=== PATIENT | female | born 1955 | race African-American/Black ===

== ENCOUNTER 2017-07-09 23:17 | Emergency (ER) | payer OTHER | END 2017-07-10 02:25 | LOC: ER 23:17 | DX: K94.23 Gastrostomy malfunction (principal); Y84.9 Medical procedure, unspecified as the cause of abnormal reaction of the patient, or of later complication, without mention of misadventure at the time of the procedure; Y92.89 Other specified places as the place of occurrence of the external cause ==

== ENCOUNTER 2019-10-12 18:08 | Emergency (ER) | payer OTHER ==
[~2019-10-12] VITALS: Ht 172.7 cm; Wt 90.7 kg
[~2019-10-12 18:08] MED LIST: GLUCAGEN1 M2; IPRAT-ALBUT 0.5-3 ML INH; KEFLEX500 MG PO; LIPITOR 20 MG T20 M1 PER TUBE; LISINOPRIL20 MG PER TUBE; LOPRESSOR25 PO; MIRALAX17 GM PO; NORVASC2.5 MG PER TUBE; PROBIOTIC PEAR1 EACH PER TUBE
[2019-10-12 21:23] VITALS: BP 175/94
== END 2019-10-12 21:00 | disposition home or self-care (01) ==
LOC: ER 18:08
DX: R09.89 Other specified symptoms and signs involving the circulatory and respiratory systems (principal); I10 Essential (primary) hypertension; E11.9 Type 2 diabetes mellitus without complications; E78.5 Hyperlipidemia, unspecified; E66.9 Obesity, unspecified; J45.909 Unspecified asthma, uncomplicated; Z68.30 Body mass index [BMI] 30.0-30.9, adult; Z86.73 Personal history of transient ischemic attack (TIA), and cerebral infarction without residual deficits

== ENCOUNTER 2019-11-16 19:35 | Emergency (ER) | payer OTHER ==
[~2019-11-16] VITALS: Ht 162.6 cm; Wt 81.7 kg
[~2019-11-16 19:35] MED LIST changes: +NORVASC 2.5 MG2.5 M1 PO; -NORVASC2.5 MG PER TUBE
[2019-11-16 20:42] LABS: ABSOLUTE NEUTROPHILS 15.2 thou/uL (1.4-8.2); BASOPHILS 0.5 % (0.0-2.0); EOSINOPHILS 0.1 % (0.0-3.0); HEMATOCRIT 43.1 % (37.0-47.0); HEMOGLOBIN 13.5 gm/dL (12.0-15.0); LYMPHOCYTES 16.3 % (24.0-44.0); MCH 26.3 pg (26.0-34.0); MCHC 31.3 g/dL (28.0-37.0); MONOCYTES 5.9 % (1.0-8.0); PLATELET COUNT 225 thou/uL (150-400); POLYS 77.2 % (36.0-66.0); RBC 5.13 mil/uL (4.20-5.00); RDW 14.8 % (10.5-14.5); WBC 22.2 thou/uL (4.0-11.0)
[2019-11-16 20:46] LABS: CALCIUM 9.7 mg/dL (8.5-10.1); POTASSIUM 4.7 mmol/L (3.5-5.1)
[2019-11-16 20:53] LABS: ALBUMIN 2.9 g/dL (3.4-5.0); DIRECT BILIRUBIN 0.1 mg/dL (<0.1-0.2); TOTAL BILIRUBIN 0.9 mg/dL (<0.1-1.0)
[2019-11-16 21:16] LABS: URINE BILIRUBIN 1+ (Negative); URINE BLOOD 1+ (Negative); URINE CLARITY SL CLOUDY; URINE COLOR ORANGE; URINE GLUCOSE-RANDOM* NEGATIVE (Negative); URINE KETONES NEGATIVE (Negative); URINE LEUKOCYTES-REFLEX NEGATIVE (Negative); URINE NITRITE-REFLEX NEGATIVE (Negative); URINE PROTEIN (DIPSTICK) 3+ (Negative); URINE SPECIFIC GRAVITY >= 1.030 (1.005-1.035)
[2019-11-16 21:35] LABS: BACTERIA-REFLEX 1-9 Few /HPF (None Seen); CASTS None Seen /LPF (None Seen); MUCUS 0-3 Light strn/LPF (None Seen); SQUAMOUS 0-3 Few /LPF (0-3); URINE RBC 0-2 Rare /HPF (0-2); URINE WBC-REFLEX 0-5 Rare /HPF (0-5)
[2019-11-16 21:36] LABS: AMORPHOUS URATES Moderate /LPF (None Seen)
[2019-11-17 00:58] VITALS: BP 137/71
== END 2019-11-17 01:14 | disposition home or self-care (01) ==
LOC: ER 19:35
PROVIDERS: Emergency Medicine
DX: D72.829 Elevated white blood cell count, unspecified (principal); R11.2 Nausea with vomiting, unspecified; I10 Essential (primary) hypertension; E11.9 Type 2 diabetes mellitus without complications; E78.5 Hyperlipidemia, unspecified; E66.9 Obesity, unspecified; J45.909 Unspecified asthma, uncomplicated; Z68.30 Body mass index [BMI] 30.0-30.9, adult; Z86.73 Personal history of transient ischemic attack (TIA), and cerebral infarction without residual deficits

== ENCOUNTER 2020-09-11 20:33 | Inpatient (IN) | payer OTHER ==
[~2020-09-11] VITALS: Ht 167.6 cm; Wt 71.5 kg
--- NOTE | ~2020-09-11 | HC ---
[facility] [place] [address] CONSULTATION Name: MAGNUS BARKLEY Room #: 362-P ADM IN M.R.#: [id number] Admission: 09/11/20 Attend Phys: Oksana Ashton MD Discharge: Date of : 57 Report #: [id number] THIS REPORT FOR: cc: Sherry Mac,Ruben Deleon MD ~ REASON FOR CONSULTATION: Elevated creatinine. REASON FOR PRESENTATION: Abnormal labs. HISTORY OF PRESENT ILLNESS: Obtained from the medical chart. The patient has expressive aphasia, dysphagia, status post hemorrhagic stroke and is not able to provide me with any history. She was brought from her nursing facility because of her high urine sodium at 174. Further details are not available. The patient was found to have a white blood cell count of 20,000 on arrival. She tested negative for COVID-19. I was consulted to manage her acute kidney injury as she was found to have a creatinine of 5.9 along with her hyponatremia. PAST MEDICAL HISTORY: 1. Expressive aphasia and dysphagia. 2. Hemorrhagic stroke. 3. Asthma. 4. Hypertension. 5. Diabetes mellitus. PAST SURGICAL HISTORY: PEG tube. SOCIAL HISTORY: Unable to obtain, but she came from [facility]. REVIEW OF SYSTEMS: Unable to obtain given the patient's current mental status. FAMILY HISTORY: Unable to obtain given the patient's current mental status. MEDICATIONS: Listed amongst her outpatient medications: 1. Lisinopril. 2. Metoprolol. 3. Cephalexin. PHYSICAL EXAMINATION: VITAL SIGNS: Temperature 37.2, pulse rate 119, respiratory rate is 19, blood pressure 119/60. HEAD AND NECK: No jugular venous distention. CHEST: No crackles. CARDIOVASCULAR: No rub. [facility] [address] [place] [address] CONSULTATION Name: MAGNUS BARKLEY Room #: 362-[facility] IN M.R.#: [id number] Admission: 09/11/20 Attend Phys: Oksana Ashton MD Discharge: Date of : 57 Report #: [id number] ABDOMEN: Soft, nontender. EXTREMITIES: Lower extremities, no edema. LABORATORY DATA: White blood cell count is 15.5, down from 20.2. Sodium is 176, BUN is 94, creatinine is 5.2. Negative COVID was noted on her blood. Chest x-ray: No acute abnormality. IMPRESSION AND PLAN: 1. Acute kidney injury. 2. Hyponatremia due to severe free water deficit. 3. Expressive aphasia. 4. Dysphagia. 5. The patient's presentation and laboratory findings are all consistent with severe free water deficit. We will increase the rate of her D5W. 6. Continue to watch electrolytes and urine output. 7. Unknown baseline; however, hopefully repleting her free water deficit will result in some improvement of her renal function. 8. Continue to hold all blood pressure medication including lisinopril. 9. We will continue to follow. By: 0831 [id number] Ruben Johnson MD /mustapha
[2020-09-11 20:34] VITALS: BP 103/71
[2020-09-11 21:37] LABS: HEMATOCRIT 47.4 % (37.0-47.0); HEMOGLOBIN 14.3 gm/dL (12.0-15.0); MCH 26.1 pg (26.0-34.0); MCHC 30.2 g/dL (28.0-37.0); MCV 86.5 fL (80.0-100.0); PLATELET COUNT 190 thou/uL (150-400); RBC 5.48 mil/uL (4.20-5.00); RDW 16.9 % (10.5-14.5); WBC 20.2 thou/uL (4.0-11.0)
[2020-09-11 21:59] LABS: ABSOLUTE NEUTROPHILS 16.8 thou/uL (1.4-8.2); ANISOCYTOSIS 1+; CALCIUM 9.4 mg/dL (8.5-10.1); CREATININE 5.9 mg/dL (0.6-1.0); MAGNESIUM 3.6 mg/dL (1.8-2.4); TROPONIN-I 0.3 ng/mL (<0.06)
[2020-09-11 22:02] LABS: POTASSIUM 5.3 mmol/L (3.5-5.1)
[2020-09-11 22:32] LABS: URINE BILIRUBIN 1+ (Negative); URINE BLOOD NEGATIVE (Negative); URINE CLARITY SL CLOUDY; URINE COLOR YELLOW; URINE GLUCOSE-RANDOM* NEGATIVE (Negative); URINE KETONES TRACE (Negative); URINE LEUKOCYTES-REFLEX NEGATIVE (Negative); URINE NITRITE-REFLEX NEGATIVE (Negative); URINE PROTEIN (DIPSTICK) 2+ (Negative); URINE SPECIFIC GRAVITY >= 1.030 (1.005-1.035)
[2020-09-11 22:42] LABS: AMP/METHAMP Negative (Negative); BARBITURATES Negative (Negative); BENZODIAZEPINES Negative (Negative); COCAINE Negative (Negative); METHADONE Negative (Negative); OPIATES Negative (Negative); PCP Negative (Negative)
[2020-09-11 22:49] LABS: BACTERIA-REFLEX 1-9 Few /HPF (None Seen); CASTS None Seen /LPF (None Seen); CRYSTALS None Seen /LPF (None Seen); MUCUS 0-3 Light strn/LPF (None Seen); SQUAMOUS 4-10 Moderate /LPF (0-3); URINE RBC 0-2 Rare /HPF (0-2); URINE WBC-REFLEX 0-5 Rare /HPF (0-5)
--- NOTE | 2020-09-11 23:30 | NUR ---
DPOA sister Helena called regarding status of pt and requested to be called when and if pt gets admitted with rm number [phone]
[2020-09-11 23:59] VITALS: BP 132/83
[2020-09-12] VITALS (8 sets, daily range): BP systolic 112–151; BP diastolic 71–97
--- NOTE | 2020-09-12 03:31 | NUR ---
ADMIT FROM ED. PT FROM [facility]. PT SENT TO ED FOR AMS AND ABNORMAL LABS. PT NA 174, LACTIC ACID 4.2, PTS BASELINE IS NODDING HEAD YES OR NO FOR ANSWERS AND AT FACILITY SHE WAS NOT RESPONDING. MED HX CVA WITH L SIDED WEAKNESS, DM, OBESITY, HEP C, ASHTMA, URINE RETENTION, HTN. PT HAS SISTER DPOA. PT PRESENTED WITH LLE SKIN TEAR. PTS DIET AT FACILITY IS PUREED. AT TIME OF ADMISSION PT ALERT, EYE CONTACT GOOD, MAKING NOISES IN RESPONSE TO INTERACTIONS WITH NURSE AND FOLLOWING COMMANDS. IV ANTIBIOTICS GIVEN. IN COVID ISOLATION. SCDS INTACT. FEMALE EXT CATH INTACT. PT HAD BM IN ED. BED ALARM ON.
--- NOTE | 2020-09-12 05:37 | NUR ---
CHARGE, BUSINESS STRATEGIST AND PROVIDER NOTIFIED FIRST PCR IS NEGATIVE.
[2020-09-12 06:40] LABS: HEMATOCRIT 42.3 % (37.0-47.0); HEMOGLOBIN 12.8 gm/dL (12.0-15.0); MCHC 30.2 g/dL (28.0-37.0); MCV 86.2 fL (80.0-100.0); RBC 4.91 mil/uL (4.20-5.00); RDW 16.6 % (10.5-14.5); WBC 15.5 thou/uL (4.0-11.0)
[2020-09-12 07:04] LABS: CALCIUM 8.4 mg/dL (8.5-10.1); CREATININE 5.2 mg/dL (0.6-1.0); MAGNESIUM 3.3 mg/dL (1.8-2.4)
[2020-09-12 07:07] LABS: POTASSIUM 4.2 mmol/L (3.5-5.1)
[2020-09-12 07:08] LABS: TROPONIN-I 0.3 ng/mL (<0.06)
--- NOTE | 2020-09-12 07:30 | EKG ---
[facility] [place] [address] ELECTROCARDIOGRAM REPORT Name: MAGNUS BARKLEY Room #: 362-P ADM IN M.R.#: [id number] Admission: 09/11/20 Attend Phys: Oksana Ashton MD Discharge: Date of : 57 Report #: [id number] THIS REPORT FOR: cc: Sherry Mac,Sherry Johnson,Aly RODRIGUES [facility] ~ THIS REPORT FOR: //name// [facility] ED Test Date: 2020-09-11 Test Time: 20:40:23 Pat Name: MAGNUS BARKLEY Department: Room: [facility] Gender: F Sap Senior Developer: barb : 1955 Requested By: Alin Prado Order Number: [id number] MD: Aly Rainey Measurements Intervals [place] Rate: 136 P: 52 MN: 101 QRS: 27 QRSD: 78 T: -60 QT: 312 QTc: 470 Interpretive Statements Sinus tachycardia Abnormal R-wave progression, early transition Nonspecific repol abnormality, diffuse leads No previous ECG available for comparison Electronically Signed On 09-12-2020 7:29:48 CDT by Aly Rainey [email or web address] <ELECTRONICALLY SIGNED> By: Aly Rainey MD, FACC 09/12/20 0729 39 39 Aly Rainey MD, [facility] /EPI
--- NOTE | 2020-09-12 11:22 | NUR ---
ASSUMED PATIENT CARE THIS AM AT APPROXIMATLEY 0700. PATIENT IS AWAKE, NON-VERBAL, ABLE TO FOLLOW COMMANDS. PATIENT CRITICAL LABS OF SODIUM AND LACTIC ACID REPORTED TO DR. ROY. REPORTED SEPSIS ALERT TO DR. ROY AND STATES WILL ORDER CARAMEL COLORING OPERATOR CONSULT FOR PATIENT. IV FLUIDS CHANGED THIS AM TO D5W FOR SODIUM LEVEL. PATIENT VSS. O2 SAT STABLE ON ROOM AIR. LOW GRADE FEVER 100.0.
--- NOTE | 2020-09-12 16:08 | NUR ---
INITIAL ASSESSMENT: Received consult. BELGICA reviewed chart and spoke with nursing and attending physician. Pt was admitted from [facility] due to dehydration. Pt placed in Enhanced Isolation to r/o COVID-19. Pt's test is negative. Enhanced Isolation precautions have been discontinued. Pt is on IV abx. BELGICA spoke with pt's sister, Quita, via phone. Introduced role of BELGICA. Pt has lived at [facility] since February of 2019. Pt was at [facility] prior to moving to [facility]. Pt with hx of CVA and is w/c bound. Pt had a peg tube in the past and it was removed once pt was on a pureed diet. Pt's sister states that family is concerned about the care pt is receiving at [facility] and would like to consider alternate placement. BELGICA discussed it may be difficult to find new placement due to COVID and some facilities are not accepting new admissions into their facility. BELGICA emailed SNF/LTC list to Quita for review. BELGICA spoke with Zenobia in admissions at [facility], who states that pt is currently receiving skilled services. BELGICA is following to assist as needed with discharge planning.
--- NOTE | 2020-09-12 18:33 | NUR ---
PT. ARRIVED AT THE FLOOR AROUND 1740; PT. ALERT; ANSWER YES/NO QUESTIONS WITH HEAD MOVEMENT; INCONTINENT; CHANGED; DURING ADMISSION ORDERED GUPTA IN ER; GPUTA NOT IN PLACED; GUPTA INSERTED; VS WNL; SR-ST ON THE MONITOR; LOW 100s; IV FLUIDS RUNNING; WILL PASS ON REPORT;
[2020-09-13 00:21] VITALS: BP 154/69
[2020-09-13 04:45] VITALS: BP 139/64
--- NOTE | 2020-09-13 05:33 | NUR ---
ASSUMED CARE OF PATIENT AT 1900; ALERT/ COOPERATIVE/ PRIMARILY NONVERBAL BUT DOES ANSWER YES/NO QUESTIONS AND FOLLOWS COMMANDS; HX OF LEFT-SIDED CVA WITH GENERALIZED WEAKNESS/ BEDBOUND/ [id number]; HAS PICC LINE ORDER/AWAITING CONSENT FROM FAMILY; GUPTA PATENT WITH MODERATE OUTPUT; SR/ST ON THE MONITOR; PATIENT PROGRESSING SLOWLY TOWARD POC AND DISCHARGE GOALS; WILL CONTINUE TO MONITOR
[2020-09-13 06:06] LABS: CALCIUM 7.9 mg/dL (8.5-10.1); PHOSPHORUS 2.8 mg/dL (2.5-4.9)
[2020-09-13 06:08] LABS: CREATININE 2.9 mg/dL (0.6-1.0)
[2020-09-13 06:10] LABS: POTASSIUM 2.7 mmol/L (3.5-5.1)
[2020-09-13 07:54] VITALS: BP 145/73
[2020-09-13 12:23] VITALS: BP 132/61
--- NOTE | 2020-09-13 13:00 | NUR ---
CONSULTED TO PLACE A PICC FOR A PATIENT IN CCU. ORDER AND CONSENT NOTED. THE RIGHT UPPER ARM VESSELS WERE SMALL AND NOT ADEQUATE FOR PICC PLACEMENT. A LEFT BASILIC WAS WIDLEY PATENT. A #5F DOUBLE LUMEN POWER PICC WAS PLACED WITH SOME RESISTANCE ON ADVANCEMENT. LINE WAS 42CM. A STAT CHEST XRAY WAS ORDERED TO VERIFY TIP LOCATION
[2020-09-13 13:27] LABS: MCHC 30.8 g/dL (28.0-37.0); MCV 84.5 fL (80.0-100.0); RBC 4.15 mil/uL (4.20-5.00); RDW 15.8 % (10.5-14.5); WBC 11.1 thou/uL (4.0-11.0)
[2020-09-13 13:34] LABS: HEMOGLOBIN 10.8 gm/dL (12.0-15.0)
[2020-09-13 15:05] VITALS: BP 146/78
--- NOTE | 2020-09-13 18:53 | NUR ---
ASSESSMENT CHARTED - MEDS PER JAN - NO CO'S OF PAIN OR NAUSEA. PT REMIANS NPO DUE TO FAILLING SWALLOW STUDY. IV FLUIDS CONTINUE - TRUNED DOWN TO 125 CC THIS AFTERNOON ORDERED AAFTER SERUM OSMOLARITY HAD BEEN CALLED TO DR ROY. PT TUNRNED IN BED - SMEAR OF STOOL. PRT APHASIC DOES FOLLOW COMMANDS. NO CO'S AT THE PRESENT TIME.
[2020-09-13 20:30] VITALS: BP 159/77
[2020-09-14 02:43] LABS: CALCIUM 8.1 mg/dL (8.5-10.1); POTASSIUM 3.6 mmol/L (3.5-5.1)
--- NOTE | 2020-09-14 03:50 | NUR ---
ASSUMED CARE OF PATIENT AT 1900. PATIENT UNABLE TO COMMUNICATE NEEDS. PATIENT UNCOOPERATIVE WITH SOME CARES. PATIENT PICKING AT PICC DRESSING. APPLIED COBAN TO HELP PROTECT SITE. PATIENT REPOSITIONED FREQUENTLY.
[2020-09-14 04:15] VITALS: BP 143/63
[2020-09-14 07:05] VITALS: BP 152/87
--- NOTE | 2020-09-14 14:47 | NUR ---
Pt now on 2N after being dc'd from enhanced [facility] with neg covid testing. Pt failed video swallow yesterday and had a peg placed today. Update provided to [facility]. Plan is to return there under her skilled medicare benefits. Therapy is seeing the pt. [facility] will not able able to accept the pt until Thursday at the earliest and will need clarification on any continued IV ATB per Picc line. Message left for pt's sister Quita regarding likely dc back to snf early next week. Cm noted that family may be interested in ltc referrals to other facilities and offered to fax referrals if they desire. Pt's sister has snf/ltc listing per email and was made aware of difficulty with locating ltc medicaid beds in this area; possible waiting lists. Case discussed with the care team. Will follow.
[2020-09-14 15:26] VITALS: BP 185/84
--- NOTE | 2020-09-14 18:40 | NUR ---
ASSESSMENT CHARTED - [place] [address] ASSESSMENT. PEG TUBE SITE C/D/I - BINDER PRESENT TO ABDO AREA. MEDS PER JAN - IV FLUIDS CHANGED AND RATE INCREASED ORDERED. PT TRUNED IN BED Q 2-3 HOURS PT WITH SMALL AREA OF BREAKDOWN PRESENT IN VERY UPPER CRACK AREA - CREAM APPLIED. SISTER IN TO VISIT WITH PATIENT THIS AFTERNOON. PT APHASIC AND UNABLE TO MAKE NEEDS KNOWN - WILL PUSH HAND AWAY IF SHE DOES NOT WANT SOMETHING DONE - DOES ANSWER Y/N QUESTIONS ? ACCUARACY DUE TO APHASIA. NO CO'S AT THE PRESENT TIME - APPEARS TO BE RESTING COMFORTABLY.
[2020-09-14 19:23] VITALS: BP 174/94
[2020-09-15] VITALS (7 sets, daily range): BP systolic 143–173; BP diastolic 68–89
[2020-09-15 04:50] LABS: CALCIUM 8.5 mg/dL (8.5-10.1); CREATININE 1.4 mg/dL (0.6-1.0); POTASSIUM 3.4 mmol/L (3.5-5.1)
[2020-09-15 05:12] LABS: ABSOLUTE NEUTROPHILS 5.4 thou/uL (1.4-8.2); BASOPHILS 0.3 % (0.0-2.0); EOSINOPHILS 1.2 % (0.0-3.0); HEMATOCRIT 34.3 % (37.0-47.0); HEMOGLOBIN 10.8 gm/dL (12.0-15.0); LYMPHOCYTES 19.7 % (24.0-44.0); MCH 26.3 pg (26.0-34.0); MCHC 31.6 g/dL (28.0-37.0); MCV 83.2 fL (80.0-100.0); MONOCYTES 5.3 % (1.0-8.0); PLATELET COUNT 69 thou/uL (150-400); POLYS 73.5 % (36.0-66.0); RBC 4.12 mil/uL (4.20-5.00); RDW 14.6 % (10.5-14.5); WBC 7.3 thou/uL (4.0-11.0)
--- NOTE | 2020-09-15 05:52 | NUR ---
ASSUMED CARE FROM DAY SHIFT PT RESTING EYES OPEN AND FOLLOW SIMPLE COMMANDS, PEG TUBE IN PLACE WITH ABD BINDER, PAPER SALES REPRESENTATIVE SHOWS NSR . PT REFUSES TO ORAL NYSATIN, PT CLOSES LIP TIGHT , LIP APPEARS TO BE BLEEDING , MOISTURE PLACED ON LIPS. WILL CONINTUE WITH CURRENT PLAN OF CARE.
--- NOTE | 2020-09-15 11:07 | NUR ---
discussed during prime time, going to start nutritional tube feeding and possible will be ready for dc on 09/17/2020.
--- NOTE | 2020-09-15 17:06 | NUR ---
ASSUMMED PT CARE AT APPROXIMATELY 0700. PT ALERT AND RESPONDS TO COMMANDS BY NODDING YES OR SHAKING HEAD FOR NO. FREQUENTLY REORIENTED PT. ASSESSMENT CHARTED. FALL PRECAUTIONS IN PLACE. PT DENIES HAVING PAIN. VITAL SIGNS STABLE. BLOOD SUGARS STABLE. STARTED TUBE FEEDINGS. PEG TUBE C/D/I. WILL CONTINUE TO MONITOR RESIDUALS. PT COMFORTABLE. PT DROWSY THROUGHOUT THE SHIFT. PT DENIES HAVING FURTHER CONCERNS.
--- NOTE | 2020-09-16 03:40 | NUR ---
ASSUMED CARE OF PATIENT AT 1900. PATIENT UNABLE TO EXPRESS NEEDS DUE TO APHASIA. AT BEGINNING OF SHIFT PATIENT WAS COMPLIANT WITH CARES AND MEDICATION ADMINISTRATION. THE NIGHT PROGRESSED PATIENT BECAME COMBATIVE AND WOULD GRAB STAFFs ARMS/HANDS AND SCRATCH STAFF. ABDOMINAL BINDER IN PLACE. NO MORE THAN 20MLs RESIDUAL FROM TUBE FEEDING.
[2020-09-16 05:48] LABS: CALCIUM 8.1 mg/dL (8.5-10.1); CREATININE 1.3 mg/dL (0.6-1.0); POTASSIUM 3.4 mmol/L (3.5-5.1)
[2020-09-16 07:44] VITALS: BP 155/94
[2020-09-16 11:31] VITALS: BP 140/78
[2020-09-16 15:18] VITALS: BP 127/68
--- NOTE | 2020-09-16 18:06 | NUR ---
ASSUMED CARE AT CHANGE OF SHIFT. PT ALERT TO NAME. WILL NOD OR SHAKE HEAD TO RESPOND TO YES/NO QUESTIONS. NO APPARENT SOB OR PAIN, VSS, TOLERATING TUBE FEEDING. LOOSE STOOL X2, 1000CC OUTPUT IN GUPTA. Q2HR TURN TOLERATED. HOB AT 30 DEGREE PER PROTOCOL. BOARDER FOAM DRESSING TO COCCYX. REFUSED MOUTH CARE. FACE AND MOUTH CLEANED FROM DROOLING. PLANS TO DC THURSDAY TO LTC. STAFF TO ANTICIPATE NEEDS.
[2020-09-16 20:50] VITALS: BP 148/77
[2020-09-17 05:48] VITALS: BP 150/71
--- NOTE | 2020-09-17 08:02 | NUR ---
REFUSED NYSTATIN TWICE.ALERT TO SELF.TURN Q2.JEVITY 1.5 AT 30 ML/HR THRU PEG TUBE.GUPTA TO DD.POC CONTINUED.
[2020-09-17] MEDS ORDERED: PREVACID 15 MG15 M4 DISSOLVE (08:41)
[2020-09-17] MEDS ORDERED: NYSTATIN100000 UNI SWISH&SPIT (08:41)
[2020-09-17 09:00] VITALS: BP 145/67
--- NOTE | 2020-09-17 10:00 | NUR ---
WOUND CARE CONSULT; ASSESSED WOUND W/ CHILD PROTECTIVE INVESTIGATOR TREVER, PT COOPERATIVE BUT APHASIC, STAGE 2 PRESSURE INJURY COCCYX, POSSIBLY DUE TO SHEARING? INCONT SMALL AMT LIQ BROWN STOOL, AREA CLEANSED, BORDER FOAM DRSG APPLIED, PHOTO TAKEN POSSIBLE DC TODAY? SEE PROCESS INTERVENTION FOR WOUND DETAILS, SCANT DRAINAGE, NO S/S INFECTION, WILL ORDER LOW AIR LOSS PUMP TO BED IF NOT DC TODAY RECOMMENDATIONS; BORDER FOAM DRSG DAILY AND PRN, OFF LOADING, TURN Q 2HOURS, LOW AIR LOSS PUMP CHILD PROTECTIVE INVESTIGATOR AWARE
[2020-09-17 12:00] VITALS: BP 130/74
[2020-09-17 12:11] LABS: CREATININE 1.2 mg/dL (0.6-1.0); POTASSIUM 3.4 mmol/L (3.5-5.1)
[2020-09-17 12:19] LABS: CALCIUM 8.1 mg/dL (8.5-10.1)
--- NOTE | 2020-09-17 12:21 | NUR ---
PT DISCHARGING TODAY BACK TO [facility] SKILLED FAXED DC ORDERS/SUMMARY TO FACILITY SPOKE WITH ANIYAH IN ADM SHE RECEIVED ORDERS AND ARRANGED TRANSPORT BY STRETCHER VAN FOR [id number]. NOTIFIED PT'S SISTER/DPOA DALTON OF DC AND TIME FO TRANSPORT. UNIT NOTIFIED AND CHART COPY PER US. RN TO CALL REPORT TO [phone].
== END 2020-09-17 17:52 | DRG 871 ==
LOC: ER 20:33 → EROBS 23:28 → 3W 23:28 → 2N 23:28 → 3W 09-12 00:16 → 2N 09-12 17:59
PROVIDERS: Emergency Medicine; Hospitalist; Nurse Practitioner Family; ADMIT Hospitalist; ATTEND Hospitalist
PROC: 02HV33Z Insertion of Infusion Device into Superior Vena Cava, Percutaneous Approach (ICD-10-PCS; 2020-09-13)
PROC: 0DH63UZ Insertion of Feeding Device into Stomach, Percutaneous Approach (ICD-10-PCS; principal; 2020-09-14)
DX: A41.9 Sepsis, unspecified organism (principal); G93.41 Metabolic encephalopathy; N17.9 Acute kidney failure, unspecified; E87.0 Hyperosmolality and hypernatremia; E87.1 Hypo-osmolality and hyponatremia; I69.354 Hemiplegia and hemiparesis following cerebral infarction affecting left non-dominant side; I10 Essential (primary) hypertension; E11.9 Type 2 diabetes mellitus without complications; E66.9 Obesity, unspecified; E78.5 Hyperlipidemia, unspecified; D69.6 Thrombocytopenia, unspecified; H01.009 Unspecified blepharitis unspecified eye, unspecified eyelid; J45.909 Unspecified asthma, uncomplicated; E86.0 Dehydration; R77.8 Other specified abnormalities of plasma proteins; R13.10 Dysphagia, unspecified; E87.5 Hyperkalemia; Z20.828 Contact with and (suspected) exposure to other viral communicable diseases; K29.70 Gastritis, unspecified, without bleeding; Z68.25 Body mass index [BMI] 25.0-25.9, adult; Z79.4 Long term (current) use of insulin; Z93.1 Gastrostomy status; Z79.899 Other long term (current) drug therapy
CPT/HCPCS: 10081; 27000; 62110; 62900; 70005

== ENCOUNTER 2021-10-04 16:51 | Emergency (ER) | payer OTHER ==
[~2021-10-04] VITALS: Ht 170.2 cm; Wt 70.3 kg
--- NOTE | ~2021-10-04 | EMS ---
[address] [address] EMS Patient Care Report Name: MAGNUS BARKLEY Room #: DEP SARINA Levy#: [id number] Admission: 10/04/21 Attend Phys: Discharge: 10/04/21 Date of : 57 Report #: [id number] THIS REPORT FOR: //name// Report Transmitted: 10/07/2021 09:47 EMS Care Summary [place], [place] Incident [id number] @ 10/04/2021 16:06 Incident Location [address] [place] [address] Patient MAGNUS BARKLEY Female, 66 Years 1955 Patient Address Patient History None Reported, Patient Allergies No known allergies, Patient Medications None Reported, Chief Complaint GT TUBE CLOGGGED; Disposition Transported No Lights/Wilson Dispatch Reason Sick Person Transported To [facility] Narrative M42 [id number] ON SCENE TO FIND A 66YO FEMALE WHOS FFFEDIG TUBE CAME OUT. SHE REFUSES TO EAT OR DRINK ANYTHING FOR THE LAST SEVERAL DAYS. HER VITALS ARE Initial Vitals @16:41P: 61,R: 14,BP: 182/117,Pain: 6/10,GCS: 15,SpO2: 80,Revised Trauma: 12, @16:45P: 134,R: 14,BP: 182/117,Pain: 6/10,SpO2: 81, [address] [address] EMS Patient Care Report Name: MAGNUS BARKLEY Room #: DEP [facility]#: [id number] Admission: 10/04/21 Attend Phys: Discharge: 10/04/21 Date of : 57 Report #: [id number] Assessments @16:45MENTAL:No Abnormalities,SKIN:No Abnormalities,HEENT:Head/Face: No Abnormalities,Eyes: No Abnormalities,Neck/Airway: No Abnormalities,LUNG SOUNDS:ABDOMEN:PELVIS//GI:EXTREMITIES:PULSE:NEURO:@16:30MENTAL:No Abnormalities,SKIN:No Abnormalities,HEENT:Head/Face: No Abnormalities,Eyes: No Abnormalities,Neck/Airway: No Abnormalities,LUNG SOUNDS:General: No Abnormalities,Left Upper: No Abnormalities,Right Upper: No Abnormalities,Left Lower: No Abnormalities,Right Lower: No Abnormalities,ABDOMEN:General: No Abnormalities,Left Upper: No Abnormalities,Right Upper: No Abnormalities,Left Lower: No Abnormalities,Right Lower: No Abnormalities,PELVIS//GI:No Abnormalities,EXTREMITIES:Left Arm: No Abnormalities,Right Arm: No Abnormalities,Left Leg: No Abnormalities,Right Leg: No Abnormalities,PULSE:NEURO:No Abnormalities, Impression Acute appendicitis Procedures @16:46 ALS Assessment Response: UnchangedSucceeded Timeline 15:53,Call Received 15:53,Dispatch Notified 16:06,Dispatched 16:06,En Route 16:20,On Scene 16:22,At Patient 16:37,Depart Scene 16:41,BP: 182/117 M,PULSE: 61,RR: 14 R,SPO2: 80 Ox,ETCO2: ,BG: ,PAIN: 6,GCS: 15, 16:45,BP: 182/117 M,PULSE: 134,RR: 14 R,SPO2: 81 Ox,ETCO2: ,BG: ,PAIN: 6,GCS: , 16:46,ALS Assessment,Response: UnchangedSucceeded, 16:48,At Destination 17:08,Call Closed Disclaimer v1.1 Copyright 2020 [employer] This EMS Care Summary contains data elements from the applicable legal record (which may be displayed differently). It is designed to provide pertinent information for the following purposes: continuity of care, clinical quality, and state data reporting. The complete legal record is available to ED staff and administrators of the receiving hospital in [employer]'s Patient Tracker. All data is provided "as is."
[~2021-10-04 16:51] MED LIST changes: +NYSTATIN100000 UNI SWISH&SPIT; +PREVACID 15 MG15 M4 DISSOLVE
[2021-10-04] MEDS ORDERED: CARVEDILOL12.5 MG PO (17:13)
[2021-10-04] MEDS ORDERED: PRAVACHOL40 MG PO (17:13)
[2021-10-04 18:10] LABS: ABSOLUTE NEUTROPHILS 3.7 thou/uL (1.4-8.2); BASOPHILS 0.7 % (0.0-2.0); EOSINOPHILS 1.4 % (0.0-3.0); HEMATOCRIT 37.6 % (37.0-47.0); LYMPHOCYTES 32.1 % (24.0-44.0); MCH 26.3 pg (26.0-34.0); MCHC 31.8 g/dL (28.0-37.0); MCV 82.7 fL (80.0-100.0); MONOCYTES 7.6 % (1.0-8.0); PLATELET COUNT 176 thou/uL (150-400); POLYS 58.2 % (36.0-66.0); RBC 4.55 mil/uL (4.20-5.00); RDW 13.8 % (10.5-14.5); WBC 6.4 thou/uL (4.0-11.0)
[2021-10-04 18:34] LABS: CREATININE 0.8 mg/dL (0.6-1.0); POTASSIUM 3.8 mmol/L (3.5-5.1)
[2021-10-04 20:11] VITALS: BP 167/93
== END 2021-10-04 20:14 ==
LOC: ER 16:51
PROVIDERS: Emergency Medicine
DX: K94.23 Gastrostomy malfunction (principal); R13.10 Dysphagia, unspecified; I10 Essential (primary) hypertension; E11.9 Type 2 diabetes mellitus without complications; E66.9 Obesity, unspecified; E78.5 Hyperlipidemia, unspecified; J45.909 Unspecified asthma, uncomplicated; Z79.899 Other long term (current) drug therapy

== ENCOUNTER 2021-10-16 09:44 | Inpatient (IN) | payer OTHER ==
[~2021-10-16] VITALS: Ht 170.2 cm; Wt 68.9 kg
--- NOTE | ~2021-10-16 | EMS ---
[facility] [address] [place] [address] EMS Patient Care Report Name: MAGNUS BARKLEY Room #: PRE M.RDarron#: [id number] Admission: Attend Phys: Discharge: Date of : 57 Report #: [id number] THIS REPORT FOR: //name// Report Transmitted: 10/16/2021 09:14 EMS Care Summary [place], [place]/[facility] Incident [id number] @ 10/16/2021 09:13 Incident Location [id number] [place] [address] Patient MAGNUS BARKLEY Female, 66 Years 1955 Patient Address [address] [place] [address] [address] [place] [address] Patient History Kidney/Renal Failure,Stroke/CVA,Dysphagia, Patient Allergies No known allergies, Patient Medications Amlodipine, Acetaminophen, Lisinopril, Miralax, Docusate Sodium, Zofran, Pravastatin, Carvedilol, Chief Complaint altered mental status Disposition Transported No Lights/Drumright Dispatch Reason Sick Person Transported To [facility] Narrative M36 dispatched on a sick person. M36 [facility] to find P28 at PT side with NH staff. NH staff stated PT more altered than normal as chief [facility] [address] [place] [address] EMS Patient Care Report Name: MAGNUS BARKLEY Room #: PRE ER M.R.#: [id number] Admission: Attend Phys: Discharge: Date of : 57 Report #: [id number] complaint. PT alert to vocal stimulus. PT moved to stretcher via four person sheet lift. PT secured with seatbelts and mask placed on PT. NH staff stated PT "refusing her diabetic blood sugar checks." PT found to have some off white substance on face by mouth. NH staff stated PT normally able to answer some questions. NH staff stated PT symptoms began this morning. PT hot to the touch. PT vitals monitored during transport including director of cardiac rehabilitation. PT report given. PT moved to hospital bed via three person sheet lift. PT care and belongings transferred to ER staff without incident. M36 placed back in service. Initial Vitals @09:30P: 158,R: 24,BP: 146/88,Pain: 0/10,GCS: 13,Temp: 101.5F,Glucose: 283,CO: 15,SpO2: 98,Revised Trauma: 12, @09:34P: 158,R: 22,BP: 144/80,Pain: 0/10,GCS: 13,CO: 13,SpO2: 97,Revised Trauma: 12, Assessments @09:25MENTAL:Confused,SKIN:Hot,HEENT:LUNG SOUNDS:ABDOMEN:PELVIS//GI:EXTREMITIES:Left Arm: Paralysis,Right Arm: Other,Left Leg: Paralysis,PULSE:Radial: 2+ Normal,NEURO:Weakness Left-Sided, Impression Altered Mental Status Procedures @09:25 ALS Assessment Response: UnchangedSucceeded @09:31 3-Lead ECG Response: UnchangedSucceeded Timeline 09:12,Call Received :12,Dispatch Notified 09:13,Dispatched 09:15,En Route 09:21,On Scene 09:25,At Patient 09:25,ALS Assessment,Response: UnchangedSucceeded, 09:30,BP: 146/88 M,PULSE: 158,RR: 24 R,SPO2: 98 Ox,ETCO2: ,B,PAIN: 0,GCS: 13, 09:31,3-Lead ECG,Response: UnchangedSucceeded, 09:33,Depart Scene 09:34,BP: 144/80 M,PULSE: 158,RR: 22 R,SPO2: 97 Ox,ETCO2: ,BG: ,PAIN: 0,GCS: 13, 09:48,At Destination 09:50,Call Closed [facility] [address] [place] [address] EMS Patient Care Report Name: MAGNUS BARKLEY Room #: PRE ER M.R.#: [id number] Admission: Attend Phys: Discharge: Date of : 57 Report #: [id number] Disclaimer v1.1 Copyright 2020 [employer] This EMS Care Summary contains data elements from the applicable legal record (which may be displayed differently). It is designed to provide pertinent information for the following purposes: continuity of care, clinical quality, and state data reporting. The complete legal record is available to ED staff and administrators of the receiving hospital in [employer]'s Patient Tracker. All data is provided "as is."
[~2021-10-16 09:44] MED LIST changes: +CARVEDILOL12.5 MG PO; +PRAVACHOL40 MG PO
[2021-10-16 09:46] VITALS: BP 148/87
[2021-10-16 10:09] LABS: BASOPHILS 0.5 % (0.0-2.0); EOSINOPHILS 0.2 % (0.0-3.0); HEMATOCRIT 36.9 % (37.0-47.0); HEMOGLOBIN 11.7 gm/dL (12.0-15.0); LYMPHOCYTES 13.7 % (24.0-44.0); MCHC 31.6 g/dL (28.0-37.0); MCV 82.4 fL (80.0-100.0); PLATELET COUNT 206 thou/uL (150-400); POLYS 78.6 % (36.0-66.0); RBC 4.48 mil/uL (4.20-5.00); WBC 16.5 thou/uL (4.0-11.0)
[2021-10-16 10:19] LABS: URINE BILIRUBIN NEGATIVE (Negative); URINE BLOOD TRACE (Negative); URINE CLARITY CLEAR; URINE COLOR YELLOW; URINE GLUCOSE-RANDOM* NEGATIVE (Negative); URINE KETONES NEGATIVE (Negative); URINE LEUKOCYTES-REFLEX NEGATIVE (Negative); URINE NITRITE-REFLEX NEGATIVE (Negative); URINE PROTEIN (DIPSTICK) 2+ (Negative); URINE SPECIFIC GRAVITY 1.015 (1.005-1.035)
[2021-10-16 10:48] LABS: CREATININE 1.3 mg/dL (0.6-1.0); POTASSIUM 4.3 mmol/L (3.5-5.1)
[2021-10-16 10:55] LABS: ALBUMIN 2.2 g/dL (3.4-5.0); DIRECT BILIRUBIN 0.1 mg/dL (<0.1-0.2); TOTAL BILIRUBIN 0.4 mg/dL (0.2-1.0); TOTAL PROTEIN 8.4 g/dL (6.4-8.2)
[2021-10-16] MEDS ORDERED: ACETAMINOPHEN500 M1 PER TUBE (11:03)
[2021-10-16] MEDS ORDERED: NORVASC 2.5 MG2.5 MG PER TUBE (11:04)
[2021-10-16] MEDS ORDERED: URECHOLINE 10 M10 M1 PER TUBE (11:04)
[2021-10-16] MEDS ORDERED: COREG6.25 MG PER TUBE (11:05)
[2021-10-16] MEDS ORDERED: LAC-HYDRIN FIV226 GM TOP (11:06)
[2021-10-16] MEDS ORDERED: STOOL SOFT50 MG/5 ML PER TUBE (11:06)
[2021-10-16] MEDS ORDERED: MIRALAX119 GM PER TUBE (11:07)
[2021-10-16] MEDS ORDERED: PRAVACHOL 20 MG20 M1 PER TUBE (11:08)
[2021-10-16] MEDS ORDERED: MULTI-VITE9 MG/15 ML PER TUBE (11:08)
[2021-10-16] MEDS ORDERED: ZOFRAN ODT4 MG PER TUBE (11:09)
[2021-10-16 12:11] LABS: CASTS None Seen /LPF (None Seen); SQUAMOUS >10 Many /LPF (0-3)
[2021-10-16 12:12] LABS: BACTERIA-REFLEX None Seen /HPF (None Seen); CRYSTALS None Seen /LPF (None Seen); URINE RBC None Seen /HPF (NONE SEEN); URINE WBC-REFLEX 0-5 Rare /HPF (0-5)
--- NOTE | 2021-10-16 15:41 | EKG ---
[address] [employer] [place] [address] ELECTROCARDIOGRAM REPORT Name: MAGNUS BARKLEY Room #: 170-12 ADM IN M.R.#: [id number] Admission: 10/16/21 Attend Phys: Tru Reeves MD Discharge: Date of : 57 Report #: [id number] [facility] ED Test Date: 2021-10-16 Test Time: 10:03:55 Pat Name: MAGNUS BARKLEY Department: Room: 170 Gender: F Employment Programs Analyst: CEZAR : 1955 Requested By: Juan Cantu Order Number: [id number] MD: Aly Rainey Measurements Intervals [place] Rate: 159 P: 63 OK: 98 QRS: 28 QRSD: 70 T: QT: 269 QTc: 438 Interpretive Statements Supraventricular tachycardia vs. Sinus tachycardia Compared to ECG 09/11/2020 20:40:23 Early repolarization no longer present Electronically Signed On 10-16-2021 15:40:53 HARNESS WORKER by Aly Rainey [email or web address] <ELECTRONICALLY SIGNED> By: Aly Rainey MD, [facility] 10/16/21 1540 1003 [id number] Aly Rainey MD, FACC /EPI
--- NOTE | 2021-10-16 16:00 | NUR ---
GRANDDAUGHTER AT BEDSIDE, WISHES TO CLEAN PT'S NAILS, GIVEN SUPPLIES. GRANDDAUGHTER UPDATES THAT PT USES AN "ABC" BOARD FOR COMMUNICATION. GIVEN DRY ERASE MARKER AND A LAMINATED SHEET AT THIS TIME. PT IS SMILING AND ANSWERING QUESTIONS FOR GRANDDAUGHTER AT THIS TIME
[2021-10-16 17:03] VITALS: BP 138/76
[2021-10-16 17:48] VITALS: BP 135/83
--- NOTE | 2021-10-16 19:17 | NUR ---
PT ARRIVED FROM ED. PT HAS A PEG TUBE AND A GUPTA. PT UNABLE TO SPEAK DUE TO HX OF CVA. SPOKE WITH FAMILY AND THEY STATED PT HAS A LETTER BOARD THAT SHE POINTS AT AND IS ABLE TO COMMUNICATE THAT WAY. ATTEMPTED TO ASK PATIENT QUESTIONS SHE ATTEMPTED TO USE THE COMMUNICATION BOARD. APPEARED TO BE TOO WEAK TO POINT AT ALL THE LETTERS. PT DID NOD APPROPRIATELY TO QUESTIONS. PT DENIED ANY PAIN. VITALS STABLE. FAMILY STATED PT WAS FULLY VACCINATED FOR COVID AND HAS ALSO RECEIVED THE BOOSTER SHOT, MODERNA. THEY DID NOT KNOW WHEN SHE RECEIVED THE VACCINATIONS. FAMILY UNAWARE IF PT HAD A FLU SHOT.
[2021-10-16 19:33] VITALS: BP 154/86
[2021-10-17] VITALS (7 sets, daily range): BP systolic 144–166; BP diastolic 80–88
[2021-10-17 05:14] LABS: ABSOLUTE NEUTROPHILS 8.5 thou/uL (1.4-8.2); BASOPHILS 0.2 % (0.0-2.0); EOSINOPHILS 1.1 % (0.0-3.0); HEMATOCRIT 32.8 % (37.0-47.0); HEMOGLOBIN 10.3 gm/dL (12.0-15.0); LYMPHOCYTES 18.4 % (24.0-44.0); MCH 26.3 pg (26.0-34.0); MCHC 31.5 g/dL (28.0-37.0); MCV 83.5 fL (80.0-100.0); MONOCYTES 5.2 % (1.0-8.0); PLATELET COUNT 147 thou/uL (150-400); POLYS 75.1 % (36.0-66.0); RBC 3.93 mil/uL (4.20-5.00); RDW 14.2 % (10.5-14.5); WBC 11.3 thou/uL (4.0-11.0)
--- NOTE | 2021-10-17 05:28 | NUR ---
ASSUMED PT CARE AT 1900, PT IS ALERT, NONVERBAL, DENIES PAIN, SR ON TELE, ASSESSMENTS CHARTED, REMAINS AFEBRILE THROUGH THE SHIFT, VSS, BS STABLE ON IV FLUIDS ORDERED, MORE ALERT THIS AM TRYING TO COMMUNICATE NEEDS, GUTPA IN PLACE DRAINING ADEQUATE U/O, REMAINS BEDREST, PLAN FOR IV ABX, AND HYDRATION, WILL CONTINUE TO MONITOR PT PER POC
[2021-10-17 05:41] LABS: CALCIUM 8.1 mg/dL (8.5-10.1); CREATININE 0.9 mg/dL (0.6-1.0); MAGNESIUM 2.5 mg/dL (1.8-2.4)
[2021-10-17 05:55] LABS: POTASSIUM 3.3 mmol/L (3.5-5.1)
--- NOTE | 2021-10-17 10:31 | NUR ---
WOUND CONSULT; ON ADMISSION BILATERAL HEEL SUSPECTED DEEP TISSUE INJURIES WERE IDENTIFIED. THERE IS A LARGE BULLAE BLISTER ON THE RIGHT HEEL APPROX 5 X 5 X 0. STABLE PAINTED WITH BETADINE. THERE IS A SMALLER BLISTER TO THE RIGHT HEEL APPROX 1.5 X 1.5 X 0 THAT IS A DARKER COLOR. BOTH FLUID FILLED AND STABLE. PRAFO BOOTS HAVE BEEN OPRDERED. RECOMMENDATION; -PAINT WITH BETADINE APPLY AN ABD SECURED WITH KERLIX CHANGE AND ASSESS DAILY. -PRAFO BOOTS ON AT ALL TIMES. -REPIOSITION PATIENT GREATER THAN Q2H. -LOW AIRLOSS BED PUMP. DISCUSSED WITH RN.
--- NOTE | 2021-10-17 18:40 | NUR ---
patient is a/o to self, non verbal. vss afebrile. restarted tube feedings, jevity 1.5 45ml/hr with water flush 250ml Q6 hours. No s/s of pain or discomfort at this time. will continue with POC
[2021-10-18 03:08] VITALS: BP 149/82
--- NOTE | 2021-10-18 04:35 | NUR ---
assumed pt care at 1900, alert to self, nonverbal, nodes to yes or no questions, denies pain, assessments as charted, tf infusing at goal, no residual, vss, prafo boots on, mouth care completed, meds given as per yumiko saravia trough 17, remains on vancomycin and zoozyn for pna, no needs at this time will continue to monitor pt per poc
[2021-10-18 04:52] LABS: CALCIUM 8.1 mg/dL (8.5-10.1); CREATININE 0.8 mg/dL (0.6-1.0); POTASSIUM 3.5 mmol/L (3.5-5.1)
[2021-10-18 05:27] LABS: HEMATOCRIT 30.6 % (37.0-47.0); HEMOGLOBIN 9.8 gm/dL (12.0-15.0); MCH 26.4 pg (26.0-34.0); MCHC 31.9 g/dL (28.0-37.0); MCV 82.8 fL (80.0-100.0); RBC 3.69 mil/uL (4.20-5.00); RDW 14.3 % (10.5-14.5); WBC 9.3 thou/uL (4.0-11.0)
[2021-10-18 07:15] VITALS: BP 146/85
--- NOTE | 2021-10-18 08:27 | NUR ---
SPOKE WITH [facility] WHO PROVIDES FULL CARE FOR THIS PATIENT AND HAS FOR SOME TIME. OT INTERVENTION NOT APPROPRIATE AT THIS TIME
[2021-10-18 11:05] VITALS: BP 153/82
--- NOTE | 2021-10-18 14:52 | NUR ---
Case opened to follow for dc planning. She is a ltc resident at [facility] for almost 2 years. She is disabled from a stroke and family made her a communication board that she points to that helps with communication. Pt's sister and dpoa Quita was here visiting and requesting clincial update. Nursing notified. Quita aware of possible dc back to the detention tomorrow and agreeable. She would like a copy of the dc medications or nursing to call her with any new dc meds so she can f/u with [facility] to ensure they get ordered. The pt is total care a the facility. Facesheet needing updated. Registration notified that pt's sister Helena has and needs to be taken off. Pt will need stretcher van or [facility] transport back to the facility along with a chart copy. Nursing will need to call the facility [phone] to confirm dc and give report,and fax dc instructions and summary to [phone].
[2021-10-18 15:52] VITALS: BP 146/83
[2021-10-18 20:12] VITALS: BP 154/84
--- NOTE | 2021-10-18 21:15 | NUR ---
PT IS AWAKE, ABLE TO NOD YES AND NO TO QUESTIONS; VSS, AFEBRILE, SR/ST ON THE MONITOR. PT CONTINUES TO ATTEMPT COMMUNICATION WITH NURSING STAFF; SOFT TOUCH CALL LIGHT OBTAINED FOR PT. PT TUBE FEEDING WAS LEAKING THIS AM; TUBE FEEDING ON HOLD PEG TUBE IS UNABLE TO CLEAR. GI CONSULTED PER DR GOODWIN. CASE MGMT CONSULTED. DR CAM CONSULTED. POC IS TO CONTINUE IV ABX; AWAITING GI TO PLACE NEW PEG TUBE. POSS D/C BACK TO [facility] THIS WEEKEND. GUPTA CATH D/C PER SHANNON TREJO. FALL PRECAUTIONS IN PLACE. NO CONCERNS AT THIS TIME.
[2021-10-19 05:33] VITALS: BP 147/90
--- NOTE | 2021-10-19 06:26 | NUR ---
PATIET RESTING IN HER ROOM. SHE IS NON VERBAL. NOTED THAT PATIENT HAS WOUNDS TO BLE. ALSO NOTED A SKIN TEAR TO HER RIGHT BUTTOCK CHEECK. NO S/S OF DISTRESS NOTED. CHANGED LINENS MULTIPLE TIMES THIS SHIFT DUE TO BM AND INCONTINENCE. WILL CONTINUE TO MONITOR.
[2021-10-19 07:20] VITALS: BP 171/93
[2021-10-19 11:30] VITALS: BP 177/96
--- NOTE | 2021-10-19 18:09 | NUR ---
SPOKE WITH DR. GOODWIN AND RECEIVED ORDERS FOR A GUPTA, GUPTA WAS INSERTED WITH DECENT OUTPUT, WITHOUT COMPLICATIONS. GASTROENTEROLOGY CLEARED PEGTUBE AT BEDSIDE AND STATED IT WAS GOOD TO USE. STARTED PT TUBE FEEDING AT 20MLS/HR AFTER 2 HOURS CHECKED RESIDUAL, O MLS. UPPED THE TUBE FEEDING TO 45 WHICH IS GOAL. PT HAD 2 BOWEL MOVEMENTS. FAMILY AT BEDSIDE LATE AFTERNOON.
[2021-10-19 19:56] VITALS: BP 158/93
[2021-10-20 03:52] LABS: CREATININE 0.7 mg/dL (0.6-1.0); POTASSIUM 3.5 mmol/L (3.5-5.1)
[2021-10-20 04:12] LABS: HEMATOCRIT 32.3 % (37.0-47.0); HEMOGLOBIN 10.2 gm/dL (12.0-15.0); MCH 25.9 pg (26.0-34.0); MCHC 31.7 g/dL (28.0-37.0); MCV 81.9 fL (80.0-100.0); RBC 3.94 mil/uL (4.20-5.00); RDW 13.5 % (10.5-14.5)
--- NOTE | 2021-10-20 05:24 | NUR ---
PT LYING IN BED. NO APPARENT PAIN. RESTING COMFORTABLY. FREQUENT OBSERVATION.
[2021-10-20 05:32] VITALS: BP 152/87
[2021-10-20 08:00] VITALS: BP 174/91
[2021-10-20 12:00] VITALS: BP 150/81
[2021-10-20 15:30] VITALS: BP 157/83
--- NOTE | 2021-10-20 17:06 | NUR ---
PT RESTED IN BED WITHOUT COMPAINTS. CONTINUED TUBE FEEDINGS. 2 LOOSE BOWEL MOVEMENTS. GOOD URINE OUTPUT. NO VISITORS TODAY.
[2021-10-20 19:18] VITALS: BP 144/81
[2021-10-21] VITALS (7 sets, daily range): BP systolic 145–177; BP diastolic 66–98
--- NOTE | 2021-10-21 04:09 | NUR ---
RECEIEVED PATIENT AT 1900H.ASSESSMENT DONE CHARTED.MEDS PER JAN.WITH PEG TUBE WITH ONGOING FEEDING AND FLUSH ORDERED, TOLERATED WELL.WITH GUPTA CATHETER INTACT.ALL NEEDS ATTENDED.FREQUENT ROUNDING.TO CONTINOUSLY MONITOR.
--- NOTE | 2021-10-21 13:18 | NUR ---
Assumed care of pt this AM. Pt is nonverbal; will follow commands. Pt on RA, SR/ ST on the monitor. PEG tube patent w/ Jevity 1.5 45mL/hr w/ 250 flush Q 6hr. Wound care done to bilateral heels & coccyx. Spoke w/ sister on the phone & updated about care. NPO. Will continue to assess pt needs throughout day.
[2021-10-21] MEDS ORDERED: LEVOFLOXACIN500 MG PER TUBE (14:28)
[2021-10-21] MEDS ORDERED: CLEOCIN HCL150 MG PER TUBE (14:28)
--- NOTE | 2021-10-21 16:18 | NUR ---
Plan dc back to [facility] today. Chart copied, orders faxed. Sp with [email or web address] nixon via [email or web address] for [phone]. Notified [facility] of timeframe.
--- NOTE | 2021-10-22 04:07 | NUR ---
PT RESTING QUIETLY IN BED, REPOSITIONED Q 2 HRS AND NEEDED, VSS, ASSESSMENTS CHARTED, NO C/O PAIN, PEG CLOTTED AND DR. WASHINGTON TO SEE THIS AM, D5W INFUSING IN L UPPER IV SITE, WILL CON'T TO MONITOR PER PPOC.
[2021-10-22 04:28] VITALS: BP 157/87
[2021-10-22 07:11] VITALS: BP 161/67
[2021-10-22 11:08] VITALS: BP 147/69
--- NOTE | 2021-10-22 14:05 | NUR ---
Assumed care of pt this AM. Pt is nonverbal, will shake head for yes/no questions. On RA, SR/ ST on the monitor. PEG unclogged by GI this AM with resume of tube feedings - jevity 1.5 45mL/hr (goal) w/ 250mL Q 6hr flushes. Plan to discharge today. IV & tele d/c'ed. Updated daughter. Report called to Los @ facility.
== END 2021-10-22 14:04 | DRG 871 ==
LOC: ER 09:44 → 2N 14:05 → EROBS 14:05 → 2N 17:25
PROVIDERS: Emergency Medicine; Nurse Practitioner; ADMIT Hospitalist; ATTEND Hospitalist
DX: A41.9 Sepsis, unspecified organism (principal); J18.9 Pneumonia, unspecified organism; E43 Unspecified severe protein-calorie malnutrition; G92.8 Other toxic encephalopathy; N17.9 Acute kidney failure, unspecified; E87.0 Hyperosmolality and hypernatremia; K94.23 Gastrostomy malfunction; I69.351 Hemiplegia and hemiparesis following cerebral infarction affecting right dominant side; Z20.822 Contact with and (suspected) exposure to COVID-19; E66.9 Obesity, unspecified; E78.5 Hyperlipidemia, unspecified; J45.909 Unspecified asthma, uncomplicated; E86.0 Dehydration; N18.9 Chronic kidney disease, unspecified; R13.10 Dysphagia, unspecified; N31.9 Neuromuscular dysfunction of bladder, unspecified; R33.9 Retention of urine, unspecified; I12.9 Hypertensive chronic kidney disease with stage 1 through stage 4 chronic kidney disease, or unspecified chronic kidney disease; E11.22 Type 2 diabetes mellitus with diabetic chronic kidney disease; Y83.8 Other surgical procedures as the cause of abnormal reaction of the patient, or of later complication, without mention of misadventure at the time of the procedure; Y82.8 Other medical devices associated with adverse incidents; L89.619 Pressure ulcer of right heel, unspecified stage; Z68.23 Body mass index [BMI] 23.0-23.9, adult; Z86.19 Personal history of other infectious and parasitic diseases; Z88.1 Allergy status to other antibiotic agents; I69.320 Aphasia following cerebral infarction; Z28.21 Immunization not carried out because of patient refusal; Z23 Encounter for immunization
CPT/HCPCS: 10081

== ENCOUNTER 2022-01-01 06:31 | Inpatient (IN) | payer OTHER ==
[~2022-01-01] VITALS: Ht 160 cm; Wt 68.5 kg
--- NOTE | ~2022-01-01 | EMS ---
[address] [address] EMS Patient Care Report Name: MAGNUS BARKLEY Room #: REG SARINA Levy#: [id number] Admission: 01/01/22 Attend Phys: Discharge: Date of : 57 Report #: [id number] THIS REPORT FOR: //name// Report Transmitted: 01/01/2022 06:00 EMS Care Summary [place], [place]/[facility] Incident [id number] @ 01/01/2022 05:56 Incident Location [address] [place] [address] Patient MAGNUS BARKLEY Female, 66 Years 1955 Patient Address [address] [place] [address] [address] [place] [address] Patient History Kidney/Renal Failure,Stroke/CVA,Dysphagia, Patient Allergies No known allergies, Patient Medications Docusate Sodium, Miralax, Acetaminophen, Pravastatin, Lisinopril, Amlodipine, Zofran, Carvedilol, Chief Complaint fever Disposition Transported No Lights/[place] Dispatch Reason Sick Person Transported To [facility] Narrative staff called for pt who has fever of 102.4 this AM. pt has LOC per her norm w/ hx of verbal aphasia. pt to be eval at [facility]. pt to cot, VS, tx as listed in [address] [address] EMS Patient Care Report Name: MAGNUS BARKLEY Room #: REG Mck[place]ley.#: [id number] Admission: 01/01/22 Attend Phys: Discharge: Date of : 57 Report #: [id number] flow chart. transport to w/o change. report to staff rm 1. Initial Vitals @06:12P: 46,SpO2: 96, @06:12P: 168,R: 28,BP: 160/92,GCS: 11,Temp: 102.4F,Glucose: 152,CO: 1,SpO2: 98,Revised Trauma: 11, Assessments @06:06MENTAL:Confused,SKIN:Diaphoresis,Hot,HEENT:Head/Face: No Abnormalities,LUNG SOUNDS:General: Other,ABDOMEN:General: Other,PELVIS//GI:Pelvis GUOther,EXTREMITIES:PULSE:NEURO: Impression Fever Procedures @06:06 ALS Assessment Response: Unchanged @06:08 Stretcher Response: Unchanged @06:08 3-Lead ECG Response: Unchanged @06:10 IV Therapy - Saline Lock 10cc (20 ga) Site: Hand-Left Response: UnchangedSucceeded Timeline 05:54,Call Received 05:54,Dispatch Notified 05:56,Dispatched 05:59,En Route 06:03,On Scene 06:06,At Patient 06:06,ALS Assessment,Response: Unchanged 06:08,Stretcher,Response: Unchanged 06:08,3-Lead ECG,Response: Unchanged 06:10,IV Therapy - Saline Lock 10cc 20 ga Site: Hand-Left,Response: UnchangedSucceeded, 06:12,BP: / M,PULSE: 46,RR: R,SPO2: 96 Ox,ETCO2: ,BG: ,PAIN: ,GCS: , 06:12,BP: 160/92 M,PULSE: 168,RR: 28 R,SPO2: 98 Ox,ETCO2: ,B,PAIN: ,GCS: 11, 06:14,Depart Scene 06:29,At Destination 06:54,Call Closed Disclaimer v1.1 Copyright 2021 [employer] This EMS Care Summary contains data elements from the applicable legal record (which may be displayed differently). It is designed to provide pertinent [address] [address] EMS Patient Care Report Name: MAGNUS BARKLEY [id number] Admission: 01/01/22 Attend Phys: Discharge: Date of : 57 Report #: [id number] information for the following purposes: continuity of care, clinical quality, and state data reporting. The complete legal record is available to ED staff and administrators of the receiving hospital in [employer]'s Patient Tracker. All data is provided "as is."
--- NOTE | ~2022-01-01 | EMS ---
[address] [address] EMS Patient Care Report Name: MAGNUS BARKLEY Room #: 364-P ADM IN M.R.#: [id number] Admission: 01/01/22 Attend Phys: Humberto Restrepo MD Discharge: Date of : 57 Report #: [id number] THIS REPORT FOR: //name// Report Transmitted: 01/03/2022 11:11 EMS Care Summary [place], [place]/[facility] Incident [id number] @ 01/01/2022 05:56 Incident Location [address] [place] [address] Patient MAGNUS BARKLEY Female, 66 Years 1955 Patient Address [address] [place] [address] Patient History Kidney/Renal Failure,Stroke/CVA,Dysphagia, Patient Allergies No known allergies, Patient Medications Docusate Sodium, Miralax, Acetaminophen, Pravastatin, Lisinopril, Amlodipine, Zofran, Carvedilol, Chief Complaint fever Disposition Transported No Lights/[place] Dispatch Reason Sick Person Transported To [facility] Narrative staff called for pt who has fever of 102.4 this AM. pt has LOC per her norm w/ hx of verbal aphasia. pt to be eval at [facility]. pt to cot, VS, tx as listed in [address] [address] EMS Patient Care Report Name: MAGNUS BARKLEY Room #: 364-P ADM IN .R.#: [id number] Admission: 01/01/22 Attend Phys: Humberto Restrepo MD Discharge: Date of : 57 Report #: [id number] flow chart. transport to ER w/o change. report to staff rm 1. Initial Vitals @06:12P: 46,SpO2: 96, @06:12P: 168,R: 28,BP: 160/92,GCS: 11,Temp: 102.4F,Glucose: 152,CO: 1,SpO2: 98,Revised Trauma: 11, Assessments @06:06MENTAL:Confused,SKIN:Diaphoresis,Hot,HEENT:Head/Face: No Abnormalities,LUNG SOUNDS:General: Other,ABDOMEN:General: Other,PELVIS//GI:Pelvis GUOther,EXTREMITIES:PULSE:NEURO: Impression Fever Procedures @06:06 ALS Assessment Response: Unchanged @06:08 Stretcher Response: Unchanged @06:08 3-Lead ECG Response: Unchanged @06:10 IV Therapy - Saline Lock 10cc (20 ga) Site: Hand-Left Response: UnchangedSucceeded Timeline 05:54,Call Received 05:54,Dispatch Notified 05:56,Dispatched 05:59,En Route 06:03,On Scene 06:06,At Patient 06:06,ALS Assessment,Response: Unchanged 06:08,Stretcher,Response: Unchanged 06:08,3-Lead ECG,Response: Unchanged 06:10,IV Therapy - Saline Lock 10cc 20 ga Site: Hand-Left,Response: UnchangedSucceeded, 06:12,BP: / M,PULSE: 46,RR: R,SPO2: 96 Ox,ETCO2: ,BG: ,PAIN: ,GCS: , 06:12,BP: 160/92 M,PULSE: 168,RR: 28 R,SPO2: 98 Ox,ETCO2: ,B,PAIN: ,GCS: 11, 06:14,Depart Scene 06:29,At Destination 06:54,Call Closed Disclaimer v1.1 Copyright 2021 [employer] This EMS Care Summary contains data elements from the applicable legal record (which may be displayed differently). It is designed to provide pertinent [facility] [address] [place] [address] EMS Patient Care Report Name: MAGNUS BARKLEY Room #: 364-P ADM IN M.R.#: [id number] Admission: 01/01/22 Attend Phys: Humberto Restrepo MD Discharge: Date of : 57 Report #: [id number] information for the following purposes: continuity of care, clinical quality, and state data reporting. The complete legal record is available to ED staff and administrators of the receiving hospital in [employer]'s Patient Tracker. All data is provided "as is."
[~2022-01-01 06:31] MED LIST changes: +ACETAMINOPHEN500 M1 PER TUBE; +CLEOCIN HCL150 MG PER TUBE; +COREG6.25 MG PER TUBE; +LAC-HYDRIN FIV226 GM TOP; +LEVOFLOXACIN500 MG PER TUBE; +MIRALAX119 GM PER TUBE; +MULTI-VITE9 MG/15 ML PER TUBE; +NORVASC 2.5 MG2.5 MG PER TUBE; +PRAVACHOL 20 MG20 M1 PER TUBE; +STOOL SOFT50 MG/5 ML PER TUBE; +URECHOLINE 10 M10 M1 PER TUBE; +ZOFRAN ODT4 MG PER TUBE
[2022-01-01 06:33] VITALS: BP 179/99
[2022-01-01 07:16] LABS: URINE BILIRUBIN NEGATIVE (Negative); URINE BLOOD NEGATIVE (Negative); URINE CLARITY CLOUDY; URINE COLOR YELLOW; URINE GLUCOSE-RANDOM* NEGATIVE (Negative); URINE KETONES NEGATIVE (Negative); URINE PROTEIN (DIPSTICK) 2+ (Negative); URINE SPECIFIC GRAVITY <= 1.005 (1.005-1.035); URINE UROBILINOGEN 0.2 E.U./dl (0.2-1.0)
[2022-01-01 07:18] LABS: ABSOLUTE NEUTROPHILS 6.6 thou/uL (1.4-8.2); BASOPHILS 0.5 % (0.0-2.0); HEMATOCRIT 39.5 % (37.0-47.0); HEMOGLOBIN 12.6 gm/dL (12.0-15.0); MCH 26.5 pg (26.0-34.0); MCHC 31.9 g/dL (28.0-37.0); MCV 83.2 fL (80.0-100.0); MONOCYTES 5.3 % (1.0-8.0); PLATELET COUNT 262 thou/uL (150-400); POLYS 68.2 % (36.0-66.0); RBC 4.74 mil/uL (4.20-5.00); WBC 9.7 thou/uL (4.0-11.0)
[2022-01-01 07:18] LABS: URINE LEUKOCYTES-REFLEX 2+ (Negative); URINE NITRITE-REFLEX POSITIVE (Negative)
[2022-01-01 07:47] LABS: CREATININE 0.9 mg/dL (0.6-1.0); POTASSIUM 4.2 mmol/L (3.5-5.1)
[2022-01-01 08:19] LABS: BACTERIA-REFLEX 1-9 Few /HPF (None Seen); SQUAMOUS None Seen /LPF (0-3); URINE RBC None Seen /HPF (NONE SEEN); URINE WBC-REFLEX 0-5 Rare /HPF (0-5)
[2022-01-01 08:20] LABS: AMORPHOUS PHOSPHATES Moderate /LPF (None Seen); TRIPLE PHOSPHATE CRYSTALS >10 Many /LPF (None Seen)
--- NOTE | 2022-01-01 08:41 | NUR ---
SISTER ON PHONE CHECKING UPDATE ON PATIENT. PROVIDED INFORMATION THAT IS AVAILABLE FOR PATIENT.
--- NOTE | 2022-01-01 12:51 | NUR ---
FAMILY MEMBERS AT BEDSIDE TO VISIT WITH PATIENT. THIS RN ANSWERED QUESTIONS AND FAMILY DENIES ANY OTHER NEEDS OR QUESTIONS.
[2022-01-01 16:52] VITALS: BP 175/82
[2022-01-01] MEDS ORDERED: NORVASC 2.5 MG2.5 M1 PO (17:45)
[2022-01-01] MEDS ORDERED: CARVEDILOL3.125 MG PO (17:45)
[2022-01-01] MEDS ORDERED: ZOLOFT 50 MG TA50 MG PER TUBE (17:46)
[2022-01-01] MEDS ORDERED: PRINIVIL20 MG PO (17:46)
[2022-01-01 23:30] VITALS: BP 151/87
[2022-01-01 23:31] VITALS: BP 129/86
--- NOTE | 2022-01-02 00:39 | NUR ---
Patient has been alert and awake for most of this shift. Patient is able to answer yes an no questions. Patient is on room air. Patient is med/ surge tele and has been running sinus rhythm. Patient has a peg tube in place that is patent. Patients medications are given via peg tube this shift. Patient is curently NPO. Patient has a vallejo in place that is patent. Reinaldo has a pressure wound on her right heel. Per protocol a picture is placed in patients chart/ wound care consult is put in/ and patients feet are floated off of a pillow. Paitent is turned q2 hours as ordered. Patient has an IV in her right forearm that is patent and currently infusing with normal saline at 75 mL's per hour. Reinaldo will continue to be montiroed.
[2022-01-02 04:10] VITALS: BP 155/81
[2022-01-02 05:29] LABS: ABSOLUTE NEUTROPHILS 2.7 thou/uL (1.4-8.2); BASOPHILS 0.3 % (0.0-2.0); EOSINOPHILS 5.1 % (0.0-3.0); HEMATOCRIT 34.6 % (37.0-47.0); LYMPHOCYTES 46.4 % (24.0-44.0); MCH 26.9 pg (26.0-34.0); MCHC 31.9 g/dL (28.0-37.0); MCV 84.3 fL (80.0-100.0); MONOCYTES 5.7 % (1.0-8.0); POLYS 42.5 % (36.0-66.0); RDW 15.5 % (10.5-14.5); WBC 6.3 thou/uL (4.0-11.0)
[2022-01-02 05:38] LABS: PLATELET COUNT 157 thou/uL (150-400)
[2022-01-02 05:45] LABS: CALCIUM 8.6 mg/dL (8.5-10.1); CREATININE 0.6 mg/dL (0.6-1.0); MAGNESIUM 2.2 mg/dL (1.8-2.4); POTASSIUM 3.9 mmol/L (3.5-5.1)
[2022-01-02 06:43] VITALS: BP 163/95
--- NOTE | 2022-01-02 07:06 | EKG ---
[address] [address] ELECTROCARDIOGRAM REPORT Name: MAGNUS BARKLEY Room #: 364-P ADM IN M.R.#: [id number] Admission: 01/01/22 Attend Phys: Humberto Restrepo MD Discharge: Date of : 57 Report #: [id number] [facility] ED Test Date: 2022-01-01 Test Time: 17:39:08 Pat Name: MAGNUS BARKLEY Department: Room: 364 Gender: F Evaluation Analyst: GOPAL : 1955 Requested By: Humberto Restrepo Order Number: [id number] MD: Aly Rainey Measurements Intervals [place] Rate: 142 P: 69 IN: 118 QRS: 30 QRSD: 67 T: 43 QT: 284 QTc: 437 Interpretive Statements Sinus tachycardia Compared to ECG 10/16/2021 10:03:55 Supraventricular tachycardia no longer present Electronically Signed On 01-02-2022 7:06:28 WAREHOUSE DIST[employer]BUTION MANAGER by Aly Rainey [email or web address] <ELECTRONICALLY SIGNED> By: Aly Rainey MD, [facility] 01/02/22 0706 [id number] Aly Rainey MD, FACC /EPI
--- NOTE | 2022-01-02 15:39 | NUR ---
PER SHON LINDO INITIAL ASSESSMENT: BELGICA spoke with nursing and attending physician. Pt was admitted from [facility] due to sepsis/UTI. Pt with right heel infection. BELGICA left message for Jake, dental hygienist mobile coordinator at [facility] to find out if pt is skilled or LTC at the facility. BELGICA spoke with pt's sister, Quita, via phone. Introduced role of BELGICA. Pt has lived at [facility] since February 2019. Pt is nonverbal and has hx of CVA. Pt's sister states she feels that pt may have had another CVA. Pt's sister requests to speak with attending physician. Plan is for pt to return to [facility] when medically stable. Pt's sister states pt was at [facility] prior to moving to [facility]. Family is trying to find alternate placement. Pt's sister states they will want to tour alternate facilities and because of COVID, they have not been able to tour and find facilities accepting new residents. BELGICA encouraged pt's sister to speak with facility SW to assist with sending referrals and/or discuss concerns. BELGICA requested attending physician to contact pt's sister to provide update and discuss plan of care. BELGICA is following to assist as needed with discharge planning. JELENA Taylor
[2022-01-02 16:46] VITALS: BP 168/77
--- NOTE | 2022-01-02 17:41 | NUR ---
ASSUMED PATIENT CARE AT 0700 . ALERT. FLOLW SIMPLE COMMAND.PRFO BOOT ON. Q2H TURN. VVS. NOTED TF RESIDUAL 250ML AT 1730. TF ON HOLD. WILL KEEP MONITOR.
[2022-01-02 19:34] VITALS: BP 154/88
--- NOTE | 2022-01-03 05:52 | NUR ---
PT SLOWLY PROGRESSING TOWARD GOALS. PT ALERT AND ATTEMPTS TO COMMUNICATE TO STAFF, BUT UNABLE TO FORMULATE WORDS R/T HX OF PRIOR CVA. JEVITY 1.5 @ 55ML/HR WITH 240ML WATER FLUSHES Q6H PER PEG TUBE. RESIDUALS <60ML DURING ASSESSMENTS. GUPTA IN PLACE TO DD. ON HENOK MATTRESS R/T IMMOBILITY AND PRESSURE INJURY TO RIGHT HEEL. WOUND CARE PERFORMED PER ORDERS. VSS THROUGHOUT THE SHIFT.
[2022-01-03 06:00] VITALS: BP 168/86
[2022-01-03 12:39] LABS: HEMATOCRIT 34.9 % (37.0-47.0); HEMOGLOBIN 11.3 gm/dL (12.0-15.0); MCH 26.9 pg (26.0-34.0); MCHC 32.3 g/dL (28.0-37.0); MCV 83.5 fL (80.0-100.0); RBC 4.18 mil/uL (4.20-5.00); RDW 15.5 % (10.5-14.5); WBC 5.1 thou/uL (4.0-11.0)
[2022-01-03 12:45] LABS: CREATININE 0.6 mg/dL (0.6-1.0); MAGNESIUM 1.8 mg/dL (1.8-2.4); POTASSIUM 3.9 mmol/L (3.5-5.1)
--- NOTE | 2022-01-03 16:26 | NUR ---
BELGICA reviewed chart and spoke with nursing and attending physician. MRI ordered for today. Pt is progressing towards goals for discharge. Pt may be ready for discharge back to [facility] over the weekend. BELGICA faxed clinical info to [facility] for review. BELGICA spoke with Jake, admissions officer/[facility], via phone to provide update. [facility] confirms they are able to accept pt back over the weekend if she is ready for discharge. Staff to call [facility] to coordinate. BELGICA spoke with pt's sister, Quita, via phone to provide update and notify of possible weekend discharge. Pt's sister requests to speak with physician regarding results of the MRI. Discharge ppwk will need to faxed to [facility] when available. Nursing to call report. Chart copy will be needed. BELGICA is following and is available to assist as needed with discharge planning. [place]-- [facility]: [phone]
[2022-01-03 16:53] VITALS: BP 181/88
--- NOTE | 2022-01-03 19:08 | NUR ---
ASSUMED PATIENT CARE AT 0700. ALERT. NONE VERBLE. VSS. TWO LOOSE STOOL. PROGRESSING TOWARDS POC GOALS.
[2022-01-03 19:40] VITALS: BP 159/69
[2022-01-03 19:49] VITALS: BP 159/69
--- NOTE | 2022-01-04 02:45 | NUR ---
PROGRESS PT ALERT ABLE TO ANSWER YES AND NO QUESTIONS BY SHAKING HEAD. REPOSITIONED Q2HRS. GUPTA IN PLACE DRAINING ADEQUATE AMOUNT OF LIGHT YELLOW URINE WITH SOME SEDIMENT NOTED. PEG TUBE INTACT SITE CLEAN AND WITHOUT IRRITATION JEVITY 1.5 INFUSING AT 55 MLS/HR NO RESIDUAL NOTED 240 CC H20 FLUSHES ORDERED. RIGHT HEEL CLEANSED WITH SALINE AND PAINTED WITH BETADINE. BARRIER CREAM TO REMAINING DRY, FLAKY, PEELING SKIN TO FEET LEGS AND ARMS. IV ANTIBIOTICS GIVEN ORDERED. CONTINUE POC.
[2022-01-04 04:42] VITALS: BP 148/56
[2022-01-04 04:42] LABS: HEMATOCRIT 33.5 % (37.0-47.0); HEMOGLOBIN 10.8 gm/dL (12.0-15.0); MCH 26.8 pg (26.0-34.0); MCHC 32.2 g/dL (28.0-37.0); MCV 83.2 fL (80.0-100.0); RBC 4.02 mil/uL (4.20-5.00); RDW 15.3 % (10.5-14.5); WBC 4.9 thou/uL (4.0-11.0)
[2022-01-04 04:45] LABS: CALCIUM 8.6 mg/dL (8.5-10.1); CREATININE 0.6 mg/dL (0.6-1.0); POTASSIUM 3.7 mmol/L (3.5-5.1)
[2022-01-04 07:12] VITALS: BP 160/65
[2022-01-04 15:23] VITALS: BP 161/71
--- NOTE | 2022-01-04 18:19 | NUR ---
ASSUMED PATIENT CARE AT 0700. ALERT. TOLERATED TF. VSS. PROGRESSING TOWARDS POC GOALS.
[2022-01-04 19:20] VITALS: BP 156/82
[2022-01-05 03:21] VITALS: BP 169/78
[2022-01-05 03:40] LABS: HEMATOCRIT 33.5 % (37.0-47.0); HEMOGLOBIN 10.9 gm/dL (12.0-15.0); MCH 26.9 pg (26.0-34.0); MCHC 32.5 g/dL (28.0-37.0); MCV 82.7 fL (80.0-100.0); RBC 4.05 mil/uL (4.20-5.00); RDW 15.5 % (10.5-14.5); WBC 4.1 thou/uL (4.0-11.0)
[2022-01-05 03:47] LABS: CALCIUM 8.6 mg/dL (8.5-10.1); CREATININE 0.5 mg/dL (0.6-1.0); MAGNESIUM 2.1 mg/dL (1.8-2.4); POTASSIUM 3.5 mmol/L (3.5-5.1)
--- NOTE | 2022-01-05 04:41 | NUR ---
PROGRESS PT ALERT BUT NON-VERBAL DOES PRESS THE CALL LIGHT AND MAKES SOUNDS TO EXPRESS NEEDS CALLS WITH INCONTINENCE EPISODES. BED BATH GIVEN SKIN DRY WITH LOTS OF DRY PEELING SKIN. RIGHT HEEL CLEANSED WITH SALINE PAINTED WITH IODINE AND PRAFO BOOTS REAPPLIED. REPOSITIONED Q2HRS. GUPTA INTACT DRAINING CLEAR YELLOW URINE NO SEDIMENT NOTED THIS SHIFT. TELEMETRY READING SR WITH RATES IN 50'S TO 70'S. CONTINUE POC.
[2022-01-05 07:37] VITALS: BP 191/94
[2022-01-05 15:59] VITALS: BP 174/91
--- NOTE | 2022-01-05 18:09 | NUR ---
PROGRESSING TOWARDS POC GOALS.
[2022-01-05 21:02] VITALS: BP 178/86
[2022-01-05 23:00] VITALS: BP 136/71
--- NOTE | 2022-01-05 23:15 | NUR ---
Pt alert opens eyes spontaneously. BP MODERATELY ELEVATED EARLIER THIS SHIFT WHICH HAS SINCE COME DOWN TO WNL. SEE VS. OTHER VSS AFEBRILE. NO S/S PAIN. PT REPOSITIONED AND IS RESTING QUIETLY. SOFT TOUCH CALL LIGHT IN REACH. PT IS ABLE TO SQUEZE NS HANDS LIGHTLY WITH HANDS VERY WEAKLY AND WIGGLES TOES UPON REQUEST.
[2022-01-06 03:41] VITALS: BP 140/72
[2022-01-06 04:36] LABS: CALCIUM 9.1 mg/dL (8.5-10.1); CREATININE 0.5 mg/dL (0.6-1.0); MAGNESIUM 2.1 mg/dL (1.8-2.4); POTASSIUM 3.6 mmol/L (3.5-5.1)
[2022-01-06 05:01] LABS: HEMATOCRIT 32.9 % (37.0-47.0); HEMOGLOBIN 10.8 gm/dL (12.0-15.0); MCH 27.1 pg (26.0-34.0); MCHC 32.7 g/dL (28.0-37.0); MCV 82.9 fL (80.0-100.0); RBC 3.97 mil/uL (4.20-5.00); RDW 15.5 % (10.5-14.5); WBC 4.9 thou/uL (4.0-11.0)
[2022-01-06 07:37] VITALS: BP 143/62
--- NOTE | 2022-01-06 11:03 | NUR ---
DISCHARGE NOTE: BELGICA reviewed chart and spoke with nursing and attending physician. Pt is medically stable for discharge back to [facility] today. Attending physician to contact pt's sister, Quita, to provide update and discuss discharge plan. Awaiting discharge ppwk at this time. BELGICA spoke with Jake, coordinator of online programs at [facility], who states they are able to accept pt back today. Stretcher van transportation to be arranged for [phone] today per facility's arrangements. Chart copy requested. BELGICA is following to finalize discharge plan.
--- NOTE | 2022-01-06 11:15 | HC ---
[facility] [place] [address] CONSULTATION Name: MAGNUS BARKLEY Room #: 364-P ADM IN M.R.#: [id number] Admission: 01/01/22 Attend Phys: Humberto Restrepo MD Discharge: Date of : 57 Report #: [id number] THIS REPORT FOR: cc: Bharat Petersen MD, Srinath MD Althoff,Justin Sepulveda MD ~ DATE OF SERVICE: 01/01/2022 CHIEF COMPLAINT: Pressure ulcer to the right heel. HISTORY OF PRESENT ILLNESS: This is a 66-year-old female patient who is a resident at [facility], who is nonverbal due to prior cerebrovascular accident. She is being admitted with sepsis, likely due to an urinary source. She is noted to have a pressure ulceration to her right heel and I have been asked to see her in this regard. She is accompanied by her sister. The patient is nonverbal. PAST MEDICAL HISTORY: Positive for prior hemorrhagic stroke with expressive aphasia. She has a history of dysphagia with PEG tube placement, hypertension, diabetes, hyperlipidemia, history of hepatitis C. ALLERGIES: TETRACYCLINE. MEDICATIONS: Lisinopril, acetaminophen, amlodipine, Urecholine, Coreg, ammonium lactate, MiraLax, Pravachol, Zofran, Levaquin, clindamycin. SOCIAL HISTORY: The patient lives in nursing care facility. No history of alcohol or tobacco use. FAMILY HISTORY: Unknown. REVIEW OF SYSTEMS: Not obtainable as the patient has expressive aphasia. PHYSICAL EXAMINATION: VITAL SIGNS: At this time include temperature 38.2, pulse 152, respiratory rate 18, blood pressure 152/76. GENERAL: This is a somewhat chronically ill-appearing female patient who appears to be in mild discomfort. HEENT: Head normocephalic. Nose and throat are clear. Eyes: She has disconjugate gaze. NECK: Supple. LUNGS: Diminished. HEART: Irregular and tachycardic. ABDOMEN: Soft and nontender. EXTREMITIES: Examination of the extremities demonstrate diminished distal pulses, but the feet are pink, warm and dry. She does have a large eschar on [address] [address] CONSULTATION Name: MAGNUS BARKLEY Room #: 364-P [facility] IN M.R.#: [id number] Admission: 01/01/22 Attend Phys: Humberto Restrepo MD Discharge: Date of : 57 Report #: [id number] the right posterior heel. Some of the edges have sloughed away. There is no overt infection. The eschar was firmly attached. NEUROLOGIC: The patient is awake. She is aphasic. She does have some spontaneous motor movement. LABORATORY DATA: Sodium 143, potassium 4.2, chloride 105, CO2 of 29, BUN 24, creatinine 0.9. White blood cell count 9.7 with a hemoglobin of 12.6. CLINICAL IMPRESSION: 1. Unstageable pressure ulcer of the right heel. 2. Sepsis, likely due to urinary source. 3. Chronic indwelling Rodríguez catheter. 4. Type 2 diabetes mellitus. 5. Expressive aphasia, status post cerebrovascular accident. 6. Severe protein-calorie malnutrition, status post PEG tube placement. 7. Hyperlipidemia. RECOMMENDATIONS: At this point in time, we will recommend Betadine paint to the heel ulcer to be covered with a dry dressing. We will recommend Prevalon boots for pressure prophylaxis. We will check arterial Dopplers. Continue with medical management, aggressive nutritional support. She will need to q. 2 hour turning and repositioning while in bed. She seems unable to turn on her own. I appreciate being asked to see her in consultation. <ELECTRONICALLY SIGNED> By: Justin Li MD 01/06/22 1115 [id number] Justin Li MD /nt
[2022-01-06 15:53] VITALS: BP 152/79
[2022-01-06 19:10] VITALS: BP 139/67
[2022-01-07 03:06] VITALS: BP 154/70
[2022-01-07 03:30] LABS: CALCIUM 8.6 mg/dL (8.5-10.1); CREATININE 0.5 mg/dL (0.6-1.0); POTASSIUM 3.7 mmol/L (3.5-5.1)
[2022-01-07 03:32] LABS: HEMOGLOBIN 10.8 gm/dL (12.0-15.0); MCH 27.3 pg (26.0-34.0); MCHC 32.6 g/dL (28.0-37.0); MCV 83.6 fL (80.0-100.0); RBC 3.95 mil/uL (4.20-5.00); RDW 15.8 % (10.5-14.5); WBC 5.4 thou/uL (4.0-11.0)
--- NOTE | 2022-01-07 06:26 | NUR ---
Patient has progressed towards outcome goals, discharge plans back to facility. Oxygenation optimal on room air. Tolerating tube feedings. Neuro unchanged, moans and groans, aphasic, eyes wide open but unable to respond. iNCONTINENT OF BLADDER. tURNED TO SIDES.
[2022-01-07 07:46] VITALS: BP 154/78
[2022-01-07 07:56] VITALS: BP 154/78
--- NOTE | 2022-01-07 10:11 | HC ---
[facility] [place] [address] CONSULTATION Name: MAGNUS BARKLEY Room #: 364-P ADM IN M.R.#: [id number] Admission: 01/01/22 Attend Phys: Humberto Restrepo MD Discharge: Date of : 57 Report #: [id number] THIS REPORT FOR: cc: Bharat Petersen MD, Srinath MD Khosla,Teodoro Salgado MD ~ DATE OF SERVICE: 01/06/2022 HISTORY OF PRESENT ILLNESS: This is a 66-year-old female patient on whom a consultation was requested by Dr. Restrepo. He called me earlier and asked me to see the patient. He updated me on the patient's history and MRI. I reviewed the patient's MRI. Subsequently, I tried to call the patient's durable power of assistant prosecuting attorney, but that did not answer, so I called the patient's sister. She says durable power of assistant prosecuting attorney is . So I talked to her. History is not very clear because she goes to [facility]. All her records are there in [facility]. When I asked the patient's sister with that she lives now, she said presently she is in my hospital. When I asked her what I meant was where did she come from before she comes to the hospital, it looks like she said there is a long-term. When I asked her when was her last stroke, she did not remember exactly, but said it was probably about 2 years ago. When I asked her, which side it affected the body, she said she was not told that. When I asked her what the cause of her stroke was if they were able to determine in [place], she was not aware of that. From the record and my discussion with Dr. 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 When she was admitted, she was febrile. Her pulse was 156. REVIEW OF SYSTEMS: A 14-point review of system was attempted. She is admitted with sepsis. She is nonverbal. She does not talk anything. She sometimes tend to follow simple commands, but not all the time. It is difficult for me to tell because I do not know what her baseline is. She apparently has pneumonia. Records indicate she has a history of hypertension, diabetes, obesity, hyperlipidemia, blepharitis and infarct. Gastrostomy tube. One of the record also says hepatitis C. This was a relevant 14-point review of systems. PAST MEDICAL HISTORY: Positive for multiple strokes. Etiology is not clear. FAMILY HISTORY: Unavailable. SOCIAL HISTORY: Sister is the one I talked to. PHYSICAL EXAMINATION: The patient is completely nonverbal. She did not say anything to me. She followed commands very rarely, but sometime she did follow simple commands and that was the extent of her mental status. I cannot tell about the sensation. She appeared to be spastic least on the left side to some [facility] [address] [place] [address] CONSULTATION Name: MAGNUS BARKLEY Room #: 364-P [facility] IN M.R.#: [id number] Admission: 01/01/22 Attend Phys: Humberto Restrepo MD Discharge: Date of : 57 Report #: [id number] extent and the whole body. Blood pressure was 139/67, respirations 18, pulse is 73, temperature is 98.7. She does not appear to have atrial fibrillation. She does not appear to have any respiratory difficulty. I reviewed the records as much as I could. IMPRESSION: This patient's neurology consultation was requested to review the patient's MRI as well as talked to the patient's sister. The both were done. This patient has severe cerebral atrophy. She had extensive small vessel ischemic changes. There are multiple infarcts scattered on both sides of the brain as well as in the khai. She also has microhemorrhages on multiple places. I discussed that situation with the patient's sister. I discussed with her the pros and cons of aspirin, especially in combination of stroke present as well as hemorrhage is present. After discussing all the options with the patient's sister, the plan was not to start her on any antithrombotic therapy because sister picked up that option. That is reasonable because aspirin has only minimal effect in stroke prevention in the women and if she is uncomfortable because of the prior microhemorrhages and possibility of amyloid angiopathy, she can be left without aspirin. The bigger question is how aggressive to be in this circumstances that I will suggest discussing with the family. This is all a chronic problem. I told her that she needs to follow up with a neurologist. He or she needs to get all the records from [place] and reviewed that. Best will be to go to [place], but that is their choice. This is because all the records are there. If the records can be obtained, I will be happy to give my opinion and see if any further workup needs to be done depending upon their recommendation. All of it was discussed with the sister. I also discussed the situation with nurses and I talked to the hospitalist this morning. I did order a TSH and vitamin B12 because of altered mental status and that can be checked. Her sed rate is high, but she is also having an infection that may have to be repeated. All of the neurological stuff can be done as an outpatient once the record from [place] is available. Thank you very much for this referral. <ELECTRONICALLY SIGNED> By: Teodoro Gong MD 01/07/22 [phone] [id number] Teodoro Gong MD /nt
--- NOTE | 2022-01-07 11:30 | NUR ---
All parties anticipating dc today back to [facility] at [facility]. Sister at bedside this am and anticipating dc this afternoon. [facility] arranged for stretcher van at 2pm-3pm pickup to facilitate dc. chart copy in progress. Nursing to call report and cm to fax final orders prior to her dc this afternoon.
[2022-01-07] MEDS ORDERED: NORVASC10 MG PER TUBE (11:50)
[2022-01-07] MEDS ORDERED: CARVEDILOL25 MG PER TUBE (11:51)
[2022-01-07] MEDS ORDERED: LOTENSIN40 MG PER TUBE (11:51)
[2022-01-07] MEDS ORDERED: AMOX TR-K CLV1 EAC4 PER TUBE (11:52)
== END 2022-01-07 14:17 | DRG 871 ==
LOC: ER 06:31 → EROBS 10:18 → 3W 10:18
PROVIDERS: Emergency Medicine; Nurse Practitioner; Psychiatry & Neurology Neuromuscular Medicine; ADMIT Internal Medicine; ATTEND Internal Medicine
DX: A41.89 Other specified sepsis (principal); E43 Unspecified severe protein-calorie malnutrition; G92.8 Other toxic encephalopathy; J18.9 Pneumonia, unspecified organism; N39.0 Urinary tract infection, site not specified; Z20.822 Contact with and (suspected) exposure to COVID-19; I10 Essential (primary) hypertension; E11.9 Type 2 diabetes mellitus without complications; E66.9 Obesity, unspecified; E78.5 Hyperlipidemia, unspecified; J45.909 Unspecified asthma, uncomplicated; N31.9 Neuromuscular dysfunction of bladder, unspecified; R13.10 Dysphagia, unspecified; L89.610 Pressure ulcer of right heel, unstageable; B19.20 Unspecified viral hepatitis C without hepatic coma; B96.4 Proteus (mirabilis) (morganii) as the cause of diseases classified elsewhere; Z79.899 Other long term (current) drug therapy; Z68.26 Body mass index [BMI] 26.0-26.9, adult; Z86.73 Personal history of transient ischemic attack (TIA), and cerebral infarction without residual deficits; Z88.1 Allergy status to other antibiotic agents; Z93.1 Gastrostomy status
CPT/HCPCS: 10879